=== PATIENT | male | born 1965 | race Caucasian/White ===

== ENCOUNTER 2021-07-14 10:41 | Inpatient (IN) | payer OTHER ==
[~2021-07-14] VITALS: Ht 160 cm; Wt 86.2 kg
[2021-07-14 12:08] LABS: HEMOGLOBIN 14.3 gm/dl (14.0-17.5); RED BLOOD COUNT 4.74 M/UL (4.20-5.50); WHITE BLOOD COUNT 14.1 K/UL (4.5-11.0)
[2021-07-14 12:45] LABS: BUN/CREATININE RATIO 15 (0-10)
[2021-07-14] MEDS ORDERED: LEXAPRO10 MG PO (17:46)
[2021-07-14] MEDS ORDERED: PROAIR DIGIHAL90 MCG PO (17:46)
[2021-07-14] MEDS ORDERED: DAILY VALUE1 EACH PO (17:47)
[2021-07-14] MEDS ORDERED: TRAZODONE HCL150 MG PO (17:47)
[2021-07-14] MEDS ORDERED: VITAMIN C500 M4 PO (17:48)
[2021-07-15 02:02] LABS: HEMOGLOBIN 12.8 gm/dl (14.0-17.5); RED BLOOD COUNT 4.31 M/UL (4.20-5.50); WHITE BLOOD COUNT 11.7 K/UL (4.5-11.0)
[2021-07-15 02:46] LABS: BUN/CREATININE RATIO 15 (0-10)
[2021-07-15 10:43] LABS: BUN/CREATININE RATIO 14 (0-10)
[2021-07-16 04:18] LABS: HEMOGLOBIN 11.6 gm/dl (14.0-17.5); RED BLOOD COUNT 3.91 M/UL (4.20-5.50); WHITE BLOOD COUNT 6.8 K/UL (4.5-11.0)
[2021-07-16 04:44] LABS: BUN/CREATININE RATIO 15 (0-10)
[2021-07-16 06:10] LABS: HBSAG SCREEN Negative (Negative); HEP A AB, IGM Negative (Negative); HEP B CORE AB, IGM Negative (Negative); HEP C VIRUS AB <0.1 (0.0-0.9)
[2021-07-17 03:29] LABS: BUN/CREATININE RATIO 12 (0-10)
--- NOTE | 2021-07-17 13:24 | NUR ---
REPORT CALLED TO [facility]UBNA FOR TRANSFER TO ROOM 510
--- NOTE | 2021-07-17 13:29 | NUR ---
PATIENT ROOM AIR SAT 88-89% AT REST
[2021-07-18] MEDS ORDERED: LISINOPRIL5 MG PO (08:47)
[2021-07-18] MEDS ORDERED: SYMBICORT 16010.2 GM INH ×2 (08:47→10:43)
[2021-07-18] MEDS ORDERED: PROAIR DIGIHAL90 MCG PO (08:47)
[2021-07-18] MEDS ORDERED: PROTONIX 40 MG40 M1 PO (08:47)
[2021-07-18] MEDS ORDERED: AUGMENTIN 875-1 EACH PO (08:47)
[2021-07-18] MEDS ORDERED: PROAIR DIGIHAL90 MCG INH (10:40)
== END 2021-07-18 11:45 | disposition home or self-care (01) | DRG 871 ==
LOC: ER1 10:41 → PROG CARE 16:53 → CDU 16:53 → PROG CARE 20:56 → M/S 07-17 14:00
PROVIDERS: Emergency Medicine; Surgery; ADMIT Internal Medicine
PROC: 5A09357 Assistance with Respiratory Ventilation, Less than 24 Consecutive Hours, Continuous Positive Airway Pressure (ICD-10-PCS; principal; 2021-07-16)
DX: A41.9 Sepsis, unspecified organism (principal); Z20.822 Contact with and (suspected) exposure to COVID-19; J96.21 Acute and chronic respiratory failure with hypoxia; K81.0 Acute cholecystitis; J45.901 Unspecified asthma with (acute) exacerbation; J98.11 Atelectasis; G47.33 Obstructive sleep apnea (adult) (pediatric); K76.0 Fatty (change of) liver, not elsewhere classified; F41.9 Anxiety disorder, unspecified; E86.0 Dehydration; R74.01 Elevation of levels of liver transaminase levels; E80.4 Gilbert syndrome; I10 Essential (primary) hypertension; Z90.49 Acquired absence of other specified parts of digestive tract; Z85.46 Personal history of malignant neoplasm of prostate; Z88.8 Allergy status to other drugs, medicaments and biological substances; Z91.040 Latex allergy status; Z82.49 Family history of ischemic heart disease and other diseases of the circulatory system; Z80.42 Family history of malignant neoplasm of prostate; Z82.0 Family history of epilepsy and other diseases of the nervous system
CPT/HCPCS: 36415; 36600; 71045; 74181; 76705; 80048; 80053; 80074; 80307; 81001; 82550; 82553; 82803; 83605; 83690; 83735; 83874; 84484; 85025; 85379; 87040; 93005; 94640; 94660; 94664; 94760; 96374; 96375; 96376; 99285; C9113; J1170; J1650; J2270; J2405; J2543; J7030; Q9967; U0002